=== PATIENT | male | born 1940 | race Caucasian/White ===

== ENCOUNTER → 2017-03-14 | Day surgery (SDC) | payer MEDICARE, BC ==
[~2017-03-14] MED LIST: DEXAMETHASONE SOD PHOS 4 MG/ML VIAL ONE; EPINEPHrine HCL (1:1000) 1 MG/ML VIAL ONE; MOXIFLOXACIN 0.5% OPHT SOLN 3 ML BTL ONE; ONDANSETRON HCL 4 MG/2 ML VIAL IV PUSH ONE; PHENYLEPHRINE HCL 10% OPTH SOLN 5 ML BTL ONE; PROPOFOL 200 MG/20 ML AMP IV ONE; SODIUM CHLORIDE 0.9% INJ 10 ML ONE; TETRACAINE 0.5% OPTH SOLN 15 ML BTL ONE; TOBRAMYCIN/DEXAMETHASONE OPTH OINT 3.5 GM TUBE ONE; TRIAMCINOLONE ACETONIDE 40 MG/ML VIAL ONE; ceFAZolin INJ 1,000 MG VIAL ONE; prednisoLONE ACETATE 1% OPHT SUSP 5 ML BTL ONE
--- NOTE | 2017-03-14 13:44 | TN ---
cc: MARTIN CARTWRIGHT MD DATE OF SURGERY: 03/14/2017 DATE OF : 1940 POSTOPERATIVE DIAGNOSIS Full full-thickness macular hole, left eye. POSTOPERATIVE DIAGNOSIS Full full-thickness macular hole, left eye. PROCEDURE Pars plana vitrectomy, removal of internal limiting membrane, macular hole closure, endolaser, air-fluid exchange, insertion of 18% SF6 gas, left eye. COMPLICATIONS None. ESTIMATED BLOOD LOSS Less than 1 cc. ANESTHESIA General, Dr. Snyder. INDICATION FOR PROCEDURE This is a delightful patient with a full-thickness macular hole of his left eye with significant vision loss. The patient reports seeing a dark spot in the center of his vision which has been enlarging. The patient had to postpone the surgery until now. PROCEDURE NOTE After informed consent was obtained, the patient was brought to the operating room where general anesthesia was established. The left eye was prepped and draped in sterile fashion with Betadine in the conjunctival fornix. A three-port pars plana vitrectomy was established with a self-retaining infusion cannula. Core vitreous was evacuated. The ILM was highlighted with ICG and removed with Scottie ILM forceps. Scleral depression examination revealed areas of retinal weakening which were treated with endolaser. Air-fluid exchange was carried out and 18% SF6 gas was instilled. The macula hole was noted to close under direct visualization during air-fluid exchange. The trocar was removed and sclerotomies closed. Subconjunctival injections of Ancef and dexamethasone were given. The eye was patched with Tobramycin ointment. The patient was brought to the recovery room in stable condition, and continue follow-up with [facility] for his postoperative care. Martin Cartwright MD KW/FIDE /1:24 PM /1:30 PM [place]
== END | disposition home or self-care (01) ==
LOC: ESDC 06:57
PROVIDERS: ATTEND Ophthalmology
DX: H35.342 Macular cyst, hole, or pseudohole, left eye (principal)
CPT/HCPCS: 00145; 67043; J0171; J0690; J1100; J2405; J3010; J3301